=== PATIENT | female | born 1965 | race Caucasian/White ===

== ENCOUNTER → 2017-02-27 | Outpatient (CLI) | payer MEDICARE, MEDICAID ==
[2017-02-27 13:24] LABS: AEROMONAS NOT DETECTED (NOT DETECTE); ASTROVIRUS NOT DETECTED (NOT DETECTE); CYCLOSPORA CAYETANENSIS NOT DETECTED (NOT DETECTE); E COLI O157 NOT DETECTED (NOT DETECTE); ENTEROAGGREGATIVE E COLI NOT DETECTED (NOT DETECTE); ENTEROPATHOGENIC E COLI NOT DETECTED (NOT DETECTE); ENTEROTOXIGENIC E COLI NOT DETECTED (NOT DETECTE); NOROVIRUS NOT DETECTED (NOT DETECTE); SAPOVIRUS NOT DETECTED (NOT DETECTE); SHIGA-LIKE TOXIN PROD. E COLI NOT DETECTED (NOT DETECTE); SHIGELLA/ENTEROINVASIVE E COLI NOT DETECTED (NOT DETECTE); VIBRIO CHOLERAE NOT DETECTED (NOT DETECTE)
== END ==
LOC: CARL-LAB 08:16
PROVIDERS: Internal Medicine Gastroenterology
DX: R19.7 Diarrhea, unspecified (principal)

== ENCOUNTER 2017-08-17 15:04 | Emergency (ER) | payer MEDICARE, MEDICAID ==
[~2017-08-17] VITALS: Ht 162.6 cm; Wt 180.5 kg
--- OUTSIDE RECORDS SUMMARY | 2017-08-17 15:22 | External Medical Summary Rpt | CCD ---
Author Author , RIGOBERTO Organization RIGOBERTO Address Unknown Phone [email or web address] Purpose Continuity of Care Document - 07-07-2012 through 2016 Results Labs Lab Lab Date Result Refere Interp Status Commen Order Detail nces retati t Range on HBV surface Ag SerPl Ql EIA (05-17-2017 09:38) HBV NEG complet surface 017 NEGATIV ed Ag 09:38 E L SerPl Ql EIA Comment: Reference Value: Negative HCV Ab SerPl Ql EIA (05-17-2017 09:38) HCV Ab NEG complet SerPl 017 NEGATIV ed Ql EIA 09:38 E L Comment: Reference Range: Negative HBV surface Ab Ser Ql (05-17-2017 09:38) HBV 0.09 complet surface 017 ed Ab Ser 09:38 Ql Comment: NEGATIVE Antibodies to HBsAg are less than 8 International Units/L which Comment: indicate they are not detected or are below the protective level for immunity. Ferritin SerPl-mCnc (12-26-2016 11:28) Ferriti 31 13-150 complet n 017 ng/mL ed SerPl-m 11:28 Cnc Transferrin SerPl-mCnc (12-26-2016 11:28) Transfe 377 200-360 complet rrin 017 mg/dL ed SerPl-m 11:28 Cnc [id number] (07-22-2013 07:40) ALT 29 IU/L 12 - 78 complet (SGPT) 013 ed 07:40 ALK 74 IU/L 50 - complet PHOS 013 136 ed 07:40 TOTAL 6.8 6.40 - complet PROTEIN 013 g/dl 8.20 ed 07:40 ALBUMIN 3.0 3.40 - Below complet 013 g/dl 5.0 low ed 07:40 normal GLOBULI 3.8 1.30 - Above complet N 013 g/dl 3.50 high ed 07:40 normal A/G 0.8 1.0 - Below complet RATIO 013 ratio 3.90 low ed 07:40 normal GLOMERU complet 013 LAR ed 07:40 FILTRAT ION RATE INTERPR ETATION Normal complet 013 Range: ed 07:40 60 Ml/min/ 1.73 sq meters If complet 013 patient ed 07:40 is [place] n, multipl y GFR by 1.120. SODIUM 141 136 - complet 013 mmol/L 145 ed 07:40 POTASSI 3.8 3.50 - complet UM 013 mmol/L 5.10 ed 07:40 CHLORID 106 98 - complet E 013 mmol/L 107 ed 07:40 TOTAL 26 21 - 32 complet CO2 013 mmol/L ed 07:40 ANION 13 5 - 15 complet GAP 013 mmol/L ed 07:40 GLUCOSE 115 70 - complet 013 mg/dl 120 ed 07:40 BUN 6 mg/dl 7 - 18 Below complet 013 low ed 07:40 normal CREATIN 1.0 0.60 - complet INE 013 mg/dl 1.30 ed 07:40 AGE 10 47 yrs complet 013 ed 07:40 GFR 60 complet 013 ml/min ed 07:40 CALCIUM 8.6 8.50 - complet 013 mg/dl 10.10 ed 07:40 TOTAL 0.6 0.20 - complet GERTRUDE 013 mg/dl 1.0 ed 07:40 AST 20 IU/L 15 - 37 complet (SGOT) 013 ed 07:40 1009 *GFR complet 013 only ed 07:40 applies to adults over the age 18. 53393-3 (07-20-2013 22:15) Color LT. NL: complet 013 YELL Negativ ed 22:15 e Clarity CLEAR NL: complet 013 Negativ ed 22:15 e Glucose NEG NL: complet 013 Negativ ed 22:15 e Bilirub NEG NL: complet in 013 Negativ ed 22:15 e Ketones NEG NL: complet 013 Negativ ed 22:15 e Specifi 1.020 NL: complet c Gr 013 1.00 >= ed 22:15 1.030 Blood NEG NL: complet 013 Negativ ed 22:15 e pH 6.0 NL: complet 013 ed 22:15 Protein NEG NL: complet 013 Negativ ed 22:15 e Urobili 0.2 NL: 0.2 complet nogen 013 - 1.0 ed 22:15 Nitrite NEG NL: complet 013 Negativ ed 22:15 e Leukocy NEG NL: complet arielle 013 Negativ ed 22:15 e MICROSC See active OPIC 013 Below_ 22:15 Wbc NEGATIV NL: active 013 E NEGATIV 22:15 E Rbc NEGATIV NL: active 013 E NEGATIV 22:15 E Epi NEGATIV NL: active Cells 013 E NEGATIV 22:15 E Bacteri NEGATIV NL: active a 013 E NEGATIV 22:15 E Mucous NEGATIV NL: active 013 E NEGATIV 22:15 E Yeast NEGATIV NL: active 013 E NEGATIV 22:15 E Casts NEGATIV NL: active 013 E NEGATIV 22:15 E Crystal NEGATIV NL: active s 013 E NEGATIV 22:15 E METH OF C CATCH complet MARI 013 ed 22:15 CULTURE NOT complet SETUP 013 INDIC ed 22:15 [id number] (07-20-2013 15:55) NE% 55.6 % 37.0 - complet 013 80.0 ed 15:55 EO% 2.20 % 0.00 - complet 013 7.00 ed 15:55 BA% 0.40 % 0.00 - complet 013 2.50 ed 15:55 LY# 10-07-2 3.50 0.60 - Above complet 013 K/uL 3.40 high ed 15:55 normal MO# 07-20- 0.92 0.00 - Above complet 013 K/uL 0.90 high ed 15:55 normal NE# 07-20-2 5.89 2.00 - complet 013 K/uL 6.90 ed 15:55 EO# 07-20- 0.23 0.00 - complet 013 K/uL 0.70 ed 15:55 BA# 07-20- 0.04 0.00 - complet 013 K/uL 0.20 ed 15:55 Manual NOT complet Diff 013 INDICAT ed 15:55 ED WBC 10.6 4.60 - Above complet 013 K/uL 10.20 high ed 15:55 normal RBC 4.80 4.04 - complet 013 M/uL 6.13 ed 15:55 HGB 12.5 12.20 - complet 013 g/dL 18.10 ed 15:55 HCT 39 % 37.70 - complet 013 53.70 ed 15:55 MCV 80.6 fL 80.0 - complet 013 97.0 ed 15:55 MCH 26.0 pg 27.0 - Below complet 013 31.20 low ed 15:55 normal MCHC 32.3 31.80 - complet 013 g/dL 35.40 ed 15:55 RDW 14.3 % 11.60 - complet 013 14.80 ed 15:55 PLT 536 142 - Above complet 013 K/uL 424 high ed 15:55 normal LY% 33.1 % 10.0 - complet 013 50.0 ed 15:55 MO% 8.7 % 0.0 - complet 013 12.0 ed 15:55 [id number] (07-20-2013 15:55) HEMOGLO 5.8 % 4.50 - complet BIN A1C 013 6.20 ed 15:55 NON-DARBY complet 013 BETIC: ed 15:55 <6.0% TOTAL HGB 31876-2 (07-20-2013 15:55) CHOLEST 174 0 - 200 complet ALEJANDRINA 013 mg/dL ed 15:55 HDL 33 35 - 60 Below complet CHOL 013 mg/dl low ed 15:55 normal LDL 93 0 - 130 complet CHOL 013 mg/dl ed 15:55 CHOL/HD 5.27 0.00 - Above complet LC 013 ratio 4.44 high ed RATIO 15:55 normal TRIGLYC 241 1 - 150 Above complet ERIDES 013 mg/dL high ed 15:55 normal [id number] (07-16-2013 04:25) SODIUM 139 136 - complet 013 mmol/L 145 ed 04:25 POTASSI 2.8 3.50 - Below complet UM 013 mmol/L 5.10 lower ed 04:[address] BCK C.ROSEB complet VRFY: 013 ERRY ed 04:25 0458 07/16/13 CHLORID 98 98 - complet E 013 mmol/L 107 ed 04:25 TOTAL 30 21 - 32 complet CO2 013 mmol/L ed 04:25 ANION 14 5 - 15 complet GAP 013 mmol/L ed 04:25 GLUCOSE 125 70 - Above complet 013 mg/dl 120 high ed 04:25 normal BUN 14 7 - 18 complet 013 mg/dl ed 04:25 CREATIN 1.1 0.60 - complet INE 013 mg/dl 1.30 ed 04:25 AGE 10 47 yrs complet 013 ed 04:25 GFR 57 complet 013 ml/min ed 04:25 CALCIUM 9.0 8.50 - complet 013 mg/dl 10.10 ed 04:25 TOTAL 0.9 0.20 - complet GERTRUDE 013 mg/dl 1.0 ed 04:25 AST 20 IU/L 15 - 37 complet (SGOT) 013 ed 04:25 ALT 28 IU/L 12 - 78 complet (SGPT) 013 ed 04:25 ALK 98 IU/L 50 - complet PHOS 013 136 ed 04:25 TOTAL 8.4 6.40 - Above complet PROTEIN 013 g/dl 8.20 high ed 04:25 normal ALBUMIN 03-2 3.9 3.40 - complet 013 g/dl 5.0 ed 04:25 GLOBULI 1003-2 4.5 1.30 - Above complet N 013 g/dl 3.50 high ed 04:25 normal A/G 07-16-2 0.9 1.0 - Below complet RATIO 013 ratio 3.90 low ed 04:25 normal 07-16-2 \E\BLDo complet 013 \E\GLOM ed 04:25 ERULAR FILTRAT ION RATE INTERPR ETATION \E\BLDx \E\ Normal complet 013 Range: ed 04:25 >60 Ml/min/ 1.73 sq meters If complet 013 patient ed 04:25 is [place] n, multipl y GFR by 1.120. *GFR complet 013 only ed 04:25 applies to adults over the age 18. [id number] (07-16-2013 04:25) WBC -03-2 7.4 4.60 - complet 013 K/uL 10.20 ed 04:25 RBC 10-03-2 4.76 4.04 - complet 013 M/uL 6.13 ed 04:25 HGB 10-03-2 12.3 12.20 - complet 013 g/dL 18.10 ed 04:25 HCT -03-2 38 % 37.70 - complet 013 53.70 ed 04:25 MCV -03-2 80.5 fL 80.0 - complet 013 97.0 ed 04:25 MCH -03-2 25.8 pg 27.0 - Below complet 013 31.20 low ed 04:25 normal MCHC 10-03-2 32.1 31.80 - complet 013 g/dL 35.40 ed 04:25 RDW 10-03-2 14.1 % 11.60 - complet 013 14.80 ed 04:25 PLT 10-03-2 461 142 - Above complet 013 K/uL 424 high ed 04:25 normal LY% 10-03-2 26.2 % 10.0 - complet 013 50.0 ed 04:25 MO% 03-2 15.7 % 0.0 - Above complet 013 12.0 high ed 04:25 normal NE% 10-03-2 55.4 % 37.0 - complet 013 80.0 ed 04:25 EO% 10-03-2 2.00 % 0.00 - complet 013 7.00 ed 04:25 BA% 10-03-2 0.70 % 0.00 - complet 013 2.50 ed 04:25 LY# 10-03-2 1.93 0.60 - complet 013 K/uL 3.40 ed 04:25 MO# 10-03-2 1.16 0.00 - Above complet 013 K/uL 0.90 high ed 04:25 normal NE# 10-03-2 4.08 2.00 - complet 013 K/uL 6.90 ed 04:25 EO# 10-03-2 0.15 0.00 - complet 013 K/uL 0.70 ed 04:25 BA# 10-03-2 0.05 0.00 - complet 013 K/uL 0.20 ed 04:25 Manual 10--2 NOT complet Diff 013 INDICAT ed 04:25 [place] [id number] (07-15-2013 07:34) EO% 10-02-2 2.00 % 0.00 - complet 013 7.00 ed 07:34 BA% 10-02-2 1.00 % 0.00 - complet 013 2.50 ed 07:34 LY# 10-02-2 1.74 0.60 - complet 013 K/uL 3.40 ed 07:34 MO# 10-02-2 0.93 0.00 - Above complet 013 K/uL 0.90 high ed 07:34 normal NE# 10-02-2 3.19 2.00 - complet 013 K/uL 6.90 ed 07:34 EO# 10-02-2 0.12 0.00 - complet 013 K/uL 0.70 ed 07:34 BA# 10-02-2 0.06 0.00 - complet 013 K/uL 0.20 ed 07:34 Manual 10--2 NOT complet Diff 013 INDICAT ed 07:34 ED WBC 10-02-2 6.0 4.60 - complet 013 K/uL 10.20 ed 07:34 RBC 10-02-2 4.81 4.04 - complet 013 M/uL 6.13 ed 07:34 HGB 10-02-2 12.6 12.20 - complet 013 g/dL 18.10 ed 07:34 HCT 39 % 37.70 - complet 013 53.70 ed 07:34 MCV 80.9 fL 80.0 - complet 013 97.0 ed 07:34 MCH 26.2 pg 27.0 - Below complet 013 31.20 low ed 07:34 normal MCHC 32.4 31.80 - complet 013 g/dL 35.40 ed 07:34 RDW 2 14.1 % 11.60 - complet 013 14.80 ed 07:34 PLT 02- 490 142 - Above complet 013 K/uL 424 high ed 07:34 normal LY% 28.8 % 10.0 - complet 013 50.0 ed 07:34 MO% 15.4 % 0.0 - Above complet 013 12.0 high ed 07:34 normal NE% 52.8 % 37.0 - complet 013 80.0 ed 07:34 [id number] (07-15-2013 07:34) ALT 31 IU/L 12 - 78 complet (SGPT) 013 ed 07:34 SODIUM 137 136 - complet 013 mmol/L 145 ed 07:34 POTASSI 3.0 3.50 - Below complet UM 013 mmol/L 5.10 low ed 07:34 normal CHLORID 97 98 - Below complet E 013 mmol/L 107 low ed 07:34 normal TOTAL 28 21 - 32 complet CO2 013 mmol/L ed 07:34 ANION 15 5 - 15 complet GAP 013 mmol/L ed 07:34 GLUCOSE 07-15- 109 70 - complet 013 mg/dl 120 ed 07:34 BUN 07-15-2 15 7 - 18 complet 013 mg/dl ed 07:34 CREATIN 02-2 1.1 0.60 - complet INE 013 mg/dl 1.30 ed 07:34 AGE [birth year]-2 47 yrs complet 013 ed 07:34 GFR 07-15- 57 complet 013 ml/min ed 07:34 CALCIUM 07-15-2 9.1 8.50 - complet 013 mg/dl 10.10 ed 07:34 TOTAL 07-15-2 1.2 0.20 - Above complet GERTRUDE 013 mg/dl 1.0 high ed 07:34 normal AST 23 IU/L 15 - 37 complet (SGOT) 013 ed 07:34 ALK 103 50 - complet PHOS 013 IU/L 136 ed 07:34 10-02 *GFR complet 013 only ed 07:34 applies to adults over the age 18. TOTAL 8.7 6.40 - Above complet PROTEIN 013 g/dl 8.20 high ed 07:34 normal ALBUMIN 4.0 3.40 - complet 013 g/dl 5.0 ed 07:34 GLOBULI 4.7 1.30 - Above complet N 013 g/dl 3.50 high ed 07:34 normal A/G 0.9 1.0 - Below complet RATIO 013 ratio 3.90 low ed 07:34 normal \E\BLDo complet 013 \E\GLOM ed 07:34 ERULAR FILTRAT ION RATE INTERPR ETATION \E\BLDx \E\ Normal complet 013 Range: ed 07:34 >60 Ml/min/ 1.73 sq meters If complet 013 patient ed 07:34 is [place] n, multipl y GFR by 1.120. [id number] (07-14-2013 08:10) AMYLASE 35 IU/L 25 - complet 013 115 ed 08:10 3040-3 (07-14-2013 08:10) LIPASE 150 U/L 73 - complet 013 393 ed 08:10 [id number] (07-13-2013 18:50) MO# 07-13- 0.95 0.00 - Above complet 013 K/uL 0.90 high ed 18:50 normal NE# 07-13- 6.30 2.00 - complet 013 K/uL 6.90 ed 18:50 WBC 9.4 4.60 - complet 013 K/uL 10.20 ed 18:50 RBC 5.25 4.04 - complet 013 M/uL 6.13 ed 18:50 HGB 13.8 12.20 - complet 013 g/dL 18.10 ed 18:50 HCT --2 42 % 37.70 - complet 013 53.70 ed 18:50 MCV 07-13-2 80.6 fL 80.0 - complet 013 97.0 ed 18:50 MCHC 30-2 32.6 31.80 - complet 013 g/dL 35.40 ed 18:50 RDW 07-13-2 13.9 % 11.60 - complet 013 14.80 ed 18:50 NE% 07-13-2 66.9 % 37.0 - complet 013 80.0 ed 18:50 EO% 07-13-2 1.10 % 0.00 - complet 013 7.00 ed 18:50 BA% 07-13-2 0.50 % 0.00 - complet 013 2.50 ed 18:50 LY# 07-13-2 2.01 0.60 - complet 013 K/uL 3.40 ed 18:50 MO% 07-13-2 10.1 % 0.0 - complet 013 12.0 ed 18:50 MCH 07-13-2 26.3 pg 27.0 - Below complet 013 31.20 low ed 18:50 normal EO# 07-13-2 0.10 0.00 - complet 013 K/uL 0.70 ed 18:50 BA# -30-2 0.05 0.00 - complet 013 K/uL 0.20 ed 18:50 Manual 07-13-2 NOT complet Diff 013 INDICAT ed 18:50 ED PLT 07-13-2 491 142 - Above complet 013 K/uL 424 high ed 18:50 normal LY% 07-13-2 21.4 % 10.0 - complet 013 50.0 ed 18:50 [id number] (07-13-2013 18:50) ALT 07-13-2 35 IU/L 12 - 78 complet (SGPT) 013 ed 18:50 ALK 07-13-2 105 50 - complet PHOS 013 IU/L 136 ed 18:50 TOTAL 07-13-2 9.5 6.40 - Above complet PROTEIN 013 g/dl 8.20 high ed 18:50 normal ALBUMIN 07-13-2 4.2 3.40 - complet 013 g/dl 5.0 ed 18:50 GLOBULI 07-13-2 5.3 1.30 - Above complet N 013 g/dl 3.50 high ed 18:50 normal A/G 0.8 1.0 - Below complet RATIO 013 ratio 3.90 low ed 18:50 normal 07-13-2 \E\BLDo complet 013 \E\GLOM ed 18:50 ERULAR FILTRAT ION RATE INTERPR ETATION \E\BLDx \E\ Normal complet 013 Range: ed 18:50 >60 Ml/min/ 1.73 sq meters If complet 013 patient ed 18:50 is [place] n, multipl y GFR by 1.120. *GFR complet 013 only ed 18:50 applies to adults over the age 18. SODIUM 136 136 - complet 013 mmol/L 145 ed 18:50 POTASSI 3.0 3.50 - Below complet UM 013 mmol/L 5.10 low ed 18:50 normal CHLORID 97 98 - Below complet E 013 mmol/L 107 low ed 18:50 normal TOTAL 27 21 - 32 complet CO2 013 mmol/L ed 18:50 ANION 15 5 - 15 complet GAP 013 mmol/L ed 18:50 GLUCOSE 94 70 - complet 013 mg/dl 120 ed 18:50 BUN 19 7 - 18 Above complet 013 mg/dl high ed 18:50 normal CREATIN 1.2 0.60 - complet INE 013 mg/dl 1.30 ed 18:50 AGE 09 47 yrs complet 013 ed 18:50 GFR 51 complet 013 ml/min ed 18:50 CALCIUM 9.6 8.50 - complet 013 mg/dl 10.10 ed 18:50 TOTAL 1.2 0.20 - Above complet GERTRUDE 013 mg/dl 1.0 high ed 18:50 normal AST 31 IU/L 15 - 37 complet (SGOT) 013 ed 18:50 3040-3 (07-13-2013 18:50) LIPASE 114 U/L 73 - complet 013 393 ed 18:50 1798-8 (07-13-2013 18:50) AMYLASE 33 IU/L 25 - complet 013 115 ed 18:50 2132-9 (07-12-2013 10:07) complet 013 3.1455. ed 10:07 XMT.SEN T REF complet 013 3.1455. ed 10:07 EHB.to LISA BROWN via link [place] complet 013 R. ed 10:07 Hazel oakley MD TEST complet 013 RESULT ed 10:07 FLAG RANGE UNITS VA ------- complet 013 ------- ed 10:07 ------- ------- ------- ------- ------- ------- ------- ------- ------- --- _VIT complet 013 B12\T\ ed 10:07 FOLATE_ Vitamin complet 013 B12 ed 10:07 and Folate CB complet 013 refers ed 10:07 to: [facility] A serum complet 013 folate ed 10:07 concent ration of less than 3.1 ng/mL is conside complet 013 red to ed 10:07 represe nt clinica l deficie ncy. Reporte complet 013 d: ed 10:07 013 13:12 Status= F Vitamin complet 013 B12 ed 10:07 546 211-946 pg/mL CB 3.1314. rfl.COR RCTD .[facility] Folate complet 013 (Folic ed 10:07 Acid), 12.2 >3.0 ng/mL CB 3.1314. rfl.COR RCTD .TR Serum complet 013 ed 10:07 6370 complet 013 Espino ed 10:07 Road [place], complet 013 OH ed 10:07 [id number] 296 614 complet 013 889-106 ed 10:07 1 37416-9 (07-12-2013 10:07) RETIC 09-29-2 1.1 % 0.20 - complet CT. 013 2.0 ed 10:07 2276-4 (07-12-2013 10:07) FERRITI 13 8 - 388 complet N 013 ng/mL ed 10:07 2502-3 (07-12-2013 10:07) IBCT 527 250 - Above complet 013 ug/dL 450 high ed 10:07 normal IRON 80 50 - complet 013 ug/dL 175 ed 10:07 % 15 12 - 57 complet SATURAT 013 ed ION 10:07 15540-1 (07-12-2013 10:07) BA# 0.04 0.00 - complet 013 K/uL 0.20 ed 10:07 Manual NOT complet Diff 013 INDICAT ed 10:07 ED WBC 7.3 4.60 - complet 013 K/uL 10.20 ed 10:07 RBC 4.88 4.04 - complet 013 M/uL 6.13 ed 10:07 HGB 12.9 12.20 - complet 013 g/dL 18.10 ed 10:07 HCT 40 % 37.70 - complet 013 53.70 ed 10:07 MCV 81.4 fL 80.0 - complet 013 97.0 ed 10:07 MCH 26.4 pg 27.0 - Below complet 013 31.20 low ed 10:07 normal MCHC 32.5 31.80 - complet 013 g/dL 35.40 ed 10:07 RDW 13.9 % 11.60 - complet 013 14.80 ed 10:07 PLT 459 142 - Above complet 013 K/uL 424 high ed 10:07 normal LY% 30.6 % 10.0 - complet 013 50.0 ed 10:07 MO% 9.3 % 0.0 - complet 013 12.0 ed 10:07 NE% 57.8 % 37.0 - complet 013 80.0 ed 10:07 EO% 1.80 % 0.00 - complet 013 7.00 ed 10:07 BA% 07-12-2 0.50 % 0.00 - complet 013 2.50 ed 10:07 LY# --2 2.24 0.60 - complet 013 K/uL 3.40 ed 10:07 MO# -29-2 0.68 0.00 - complet 013 K/uL 0.90 ed 10:07 NE# -29-2 4.22 2.00 - complet 013 K/uL 6.90 ed 10:07 EO# --2 0.13 0.00 - complet 013 K/uL 0.70 ed 10:07 [id number] (07-11-2013 08:00) TROPONI 07-11-2 0.00 0.00 - complet N-I 013 ng/ml 0.06 ed 08:00 INITIAL complet 013 ed 08:00 TROPONI N? __NO_ 3.0854. CW . . .M 0 - complet 013 0.06 ed 08:00 ng/ml (NEGATI VE) > 0.06 complet 013 ng/ml ed 08:00 (POSITI VE) CKMB wCPK (07-11-2013 08:00) CKMB 0.1 0.01 - complet 013 ng/ml 3.60 ed 08:00 CK 58 U/L 21 - complet 013 215 ed 08:00 CKMB NOT 0 - complet INDEX 013 APPL % 4.10 ed 08:00 MMB complet 013 (ng/ml) ed 08:00 Relativ e Index NON AMI complet 013 </= ed 08:00 5.0 NA CARDENAS complet 013 ZONE > ed 08:00 5.0 </= 4.0 AMI > complet 013 5.0 > ed 08:00 4.0 RELATIV complet 013 E INDEX ed 08:00 NOT AVAILAB LE ON PATIENT S W/HARVEY L CKMB [id number] (07-11-2013 04:15) MCV 81.9 fL 80.0 - complet 013 97.0 ed 04:15 MCH 09-28-2 26.3 pg 27.0 - Below complet 013 31.20 low ed 04:15 normal MCHC 07-11-2 32.1 31.80 - complet 013 g/dL 35.40 ed 04:15 RDW 07-11-2 14.0 % 11.60 - complet 013 14.80 ed 04:15 PLT 07-11-2 460 142 - Above complet 013 K/uL 424 high ed 04:15 normal LY% 07-11-2 37.8 % 10.0 - complet 013 50.0 ed 04:15 MO% 07-11-2 8.7 % 0.0 - complet 013 12.0 ed 04:15 NE% 07-11-2 50.5 % 37.0 - complet 013 80.0 ed 04:15 EO% 07-11-2 2.50 % 0.00 - complet 013 7.00 ed 04:15 BA% 07-11-2 0.50 % 0.00 - complet 013 2.50 ed 04:15 LY# 07-11-2 3.33 0.60 - complet 013 K/uL 3.40 ed 04:15 MO# 07-11-2 0.77 0.00 - complet 013 K/uL 0.90 ed 04:15 NE# 28-2 4.45 2.00 - complet 013 K/uL 6.90 ed 04:15 EO# 28-2 0.22 0.00 - complet 013 K/uL 0.70 ed 04:15 BA# 09-28-2 0.04 0.00 - complet 013 K/uL 0.20 ed 04:15 Manual 2 NOT complet Diff 013 INDICAT ed 04:15 ED WBC 07-11-2 8.8 4.60 - complet 013 K/uL 10.20 ed 04:15 RBC 07-11-2 4.26 4.04 - complet 013 M/uL 6.13 ed 04:15 HGB 07-11-2 11.2 12.20 - Below complet 013 g/dL 18.10 low ed 04:15 normal HCT 07-11- 35 % 37.70 - Below complet 013 53.70 low ed 04:15 normal 5902-2 (07-11-2013 04:15) PT 07-11-2 11.2 9.70 - Above complet 013 secs 10.60 high ed 04:15 normal INR 1.1 0.90 - complet 013 1.10 ed 04:15 INR complet 013 SUGGEST ed 04:15 ED GUIDELI CHENCHO * complet 013 Routine ed 04:15 or anticoa gulant therapy 2.0 - 3.0 * Oral complet 013 anticoa ed 04:15 gulant therapy for recurre nt embolis complet 013 m and ed 04:15 patient s with mechani shanna heart valves complet 013 2.5 - ed 04:15 3.5 43369-4 (07-11-2013 01:30) TROPONI 0.00 0.00 - complet N-I 013 ng/ml 0.06 ed 01:30 INITIAL complet 013 ed 01:30 TROPONI N? __NO_ 3.0254. C. . .M RD BCK o.Trues complet VRFY: 013 /09 ed 01:30 2813/02 15/king 0 - complet 013 0.06 ed 01:30 ng/ml (NEGATI VE) > 0.06 complet 013 ng/ml ed 01:30 (POSITI VE) CKMB wCPK (07-11-2013 01:30) CKMB 0.3 0.01 - complet 013 ng/ml 3.60 ed 01:30 CK 57 U/L 21 - complet 013 215 ed 01:30 CKMB NOT 0 - complet INDEX 013 APPL % 4.10 ed 01:30 MMB complet 013 (ng/ml) ed 01:30 Relativ e Index NON AMI complet 013 </= ed 01:30 5.0 NA CARDENAS complet 013 ZONE > ed 01:30 5.0 </= 4.0 AMI > complet 013 5.0 > ed 01:30 4.0 RELATIV complet 013 E INDEX ed 01:30 NOT AVAILAB LE ON PATIENT S W/HARVEY L CKMB [id number] (07-11-2013 00:50) APTT 09-28-2 76.5 26.90 - Above complet 013 secs 29.96 upper ed 00:[address] [facility] O.Trues complet VRFY: 013 dell/ ed 00:50 2813/01 33/king 84134-9 (07-10-2013 20:25) TROPONI 0.00 0.00 - complet N-I 013 ng/ml 0.06 ed 20:25 INITIAL complet 013 ed 20:25 TROPONI N? __NO_ 3.1. VWC. . .M RD [facility] O.Trues complet VRFY: 013 dell/ ed 20:25 2713/21 21/king 0 - complet 013 0.06 ed 20:25 ng/ml (NEGATI VE) > 0.06 complet 013 ng/ml ed 20:25 (POSITI VE) CKMB wCPK (07-10-2013 20:25) CKMB 0.3 0.01 - complet 013 ng/ml 3.60 ed 20:25 CK 63 U/L 21 - complet 013 215 ed 20:25 CKMB NOT 0 - complet INDEX 013 APPL % 4.10 ed 20:25 MMB complet 013 (ng/ml) ed 20:25 Relativ e Index NON AMI complet 013 </= ed 20:25 5.0 NA CARDENAS complet 013 ZONE > ed 20:25 5.0 </= 4.0 AMI > complet 013 5.0 > ed 20:25 4.0 RELATIV complet 013 E INDEX ed 20:25 NOT AVAILAB LE ON PATIENT S W/HARVEY L CKMB 20824-0 (07-10-2013 17:30) CULTURE C\T\S Abnorma complet SETUP 013 ORDER l ed 17:30 Urobili 0.2 NL: 0.2 complet nogen 013 - 1.0 ed 17:30 Color LT. NL: complet 013 YELL Negativ ed 17:30 e Clarity CLEAR NL: complet 013 Negativ ed 17:30 e Glucose NEG NL: complet 013 Negativ ed 17:30 e Bilirub NEG NL: complet in 013 Negativ ed 17:30 e Ketones NEG NL: complet 013 Negativ ed 17:30 e Specifi 1.020 NL: complet c Gr 013 1.00 >= ed 17:30 1.030 Blood 2+ NL: Abnorma complet 013 Negativ l ed 17:30 e pH 6.0 NL: complet 013 ed 17:30 Wbc 3 - 5 NL: Abnorma complet 013 NEGATIV l ed 17:30 E Rbc 75 - NL: Abnorma complet 013 100 NEGATIV l ed 17:30 E Epi RARE NL: complet Cells 013 NEGATIV ed 17:30 E Bacteri 3+ NL: Abnorma complet a 013 NEGATIV l ed 17:30 E Mucous TRACE NL: complet 013 NEGATIV ed 17:30 E Yeast NEGATIV NL: active 013 E NEGATIV 17:30 E Casts SEE NL: complet 013 BELOW NEGATIV ed 17:30 E Hyaline 5 - 10 complet Cast 013 ed 17:30 Crystal SEE NL: complet s 013 BELOW NEGATIV ed 17:30 E METH OF C CATCH complet MARI 013 ed 17:30 Nitrite NEG NL: complet 013 Negativ ed 17:30 e Leukocy NEG NL: complet arielle 013 Negativ ed 17:30 e MICROSC See active OPIC 013 Below_ 17:30 Protein NEG NL: complet 013 Negativ ed 17:30 e [id number] (07-10-2013 12:30) therapy complet 013 , ed 12:30 stress, and hospita lizatio n. D-Dimer levels may be decreas ed in patient complet 013 s on ed 12:30 anti-co agulant therapy . Patient complet 013 s with ed 12:30 a high clinica l probabi lity should not be exclude d without confirm complet 013 atory ed 12:30 radiolo gical or vascula r procedu res. D-DIMER 0.32 0.19 - complet , QT 013 mg/L 0.59 ed 12:30 QUANTIT complet 013 ATIVE ed 12:30 D-DIMER INTERPR ETATION [CLINIC complet 013 AL ed 12:30 CUTOFF = <0.5 mg/L] When complet 013 combine ed 12:30 d with a low clinica l probabi lity (Wells Score). D-dimer results complet below ed 12:30 the clinica l cutoff (<0.5 mg/L) have excelle nt negativ e predict complet 013 elvia ed 12:30 value in excludi ng the diagnos is of acute PE or DVT. However , a complet 013 thrombo ed 12:30 embolic event cannot be exclude d solely on the basis of the D-Dimer 013 level ed 12:30 being within referen ce range. D-Dimer complet 013 s may ed 12:30 also be elevate d for a variety of disorde rs includi n old complet 013 age, ed 12:30 pregnan cy, coronar y disease , cancer, liver disease , infecti on, inflama complet 013 tion, ed 12:30 hematom a, DIC, trauma, post-hensley rgery, diabete s, thrombo lytic 5902-2 (07-10-2013 12:30) embolis complet 013 m and ed 12:30 patient s with mechani shanna heart valves complet 013 2.5 - ed 12:30 3.5 PT 11.5 9.70 - Above complet 013 secs 10.60 high ed 12:30 normal INR 1.1 0.90 - complet 013 1.10 ed 12:30 APTT 31.6 26.90 - Above complet 013 secs 29.96 high ed 12:30 normal INR complet 013 SUGGEST ed 12:30 ED GUIDELI CHENCHO * complet 013 Routine ed 12:30 or anticoa gulant therapy 2.0 - 3.0 * Oral complet 013 anticoa ed 12:30 gul[place] [id number] (07-10-2013 12:30) WBC 07-10- 10.6 4.60 - Above complet 013 K/uL 10.20 high ed 12:30 normal RBC 4.83 4.04 - complet 013 M/uL 6.13 ed 12:30 HGB 12.7 12.20 - complet 013 g/dL 18.10 ed 12:30 HCT 39 % 37.70 - complet 013 53.70 ed 12:30 MCV 81.0 fL 80.0 - complet 013 97.0 ed 12:30 MCH 26.3 pg 27.0 - Below complet 013 31.20 low ed 12:30 normal MCHC 32.5 31.80 - complet 013 g/dL 35.40 ed 12:30 RDW 2 14.1 % 11.60 - complet 013 14.80 ed 12:30 PLT 611 142 - Above complet 013 K/uL 424 high ed 12:30 normal LY% 07-10-2 32.5 % 10.0 - complet 013 50.0 ed 12:30 MO% 07-10-2 9.2 % 0.0 - complet 013 12.0 ed 12:30 NE% 07-10-2 54.6 % 37.0 - complet 013 80.0 ed 12:30 EO% 07-10-2 3.20 % 0.00 - complet 013 7.00 ed 12:30 BA% 07-10-2 0.50 % 0.00 - complet 013 2.50 ed 12:30 LY# 07-10-2 3.43 0.60 - Above complet 013 K/uL 3.40 high ed 12:30 normal MO# 07-10-2 0.97 0.00 - Above complet 013 K/uL 0.90 high ed 12:30 normal NE# 07-10-2 5.78 2.00 - complet 013 K/uL 6.90 ed 12:30 EO# 0.34 0.00 - complet 013 K/uL 0.70 ed 12:30 BA# 0.05 0.00 - complet 013 K/uL 0.20 ed 12:30 Manual NOT complet Diff 013 INDICAT ed 12:30 [place] [id number] (07-10-2013 12:30) TSH 0.51 0.36 - complet 013 uIU/mL 3.74 ed 12:30 [id number] (07-10-2013 12:30) TROPONI 0.00 0.00 - complet N-I 013 ng/ml 0.06 ed 12:30 INITIAL complet 013 ed 12:30 TROPONI N? _YES_ 3.1414. CW . . .M 0 - complet 013 0.06 ed 12:30 ng/ml (NEGATI VE) > 0.06 complet 013 ng/ml ed 12:30 (POSITI VE) [id number] (07-10-2013 12:30) MYOGLOB 35 10 - 92 complet IN 013 ng/ml ed 12:30 [id number] (07-10-2013 12:30) ALT 28 IU/L 12 - 78 complet (SGPT) 013 ed 12:30 ALK 98 IU/L 50 - complet PHOS 013 136 ed 12:30 TOTAL 9.0 6.40 - Above complet PROTEIN 013 g/dl 8.20 high ed 12:30 normal ALBUMIN 4.2 3.40 - complet 013 g/dl 5.0 ed 12:30 GLOBULI 4.8 1.30 - Above complet N 013 g/dl 3.50 high ed 12:30 normal A/G 0.9 1.0 - Below complet RATIO 013 ratio 3.90 low ed 12:30 normal \E\BLDo complet 013 \E\GLOM ed 12:30 ERULAR FILTRAT ION RATE INTERPR ETATION \E\BLDx \E\ Normal complet 013 Range: ed 12:30 >60 Ml/min/ 1.73 sq meters If complet 013 patient ed 12:30 is [place] n, multipl y GFR by 1.120. *GFR complet 013 only ed 12:30 applies to adults over the age 18. SODIUM 141 136 - complet 013 mmol/L 145 ed 12:30 POTASSI 3.8 3.50 - complet UM 013 mmol/L 5.10 ed 12:30 CHLORID 103 98 - complet E 013 mmol/L 107 ed 12:30 TOTAL 24 21 - 32 complet CO2 013 mmol/L ed 12:30 ANION 18 5 - 15 Above complet GAP 013 mmol/L high ed 12:30 normal GLUCOSE 106 70 - complet 013 mg/dl 120 ed 12:30 BUN 16 7 - 18 complet 013 mg/dl ed 12:30 CREATIN 1.2 0.60 - complet INE 013 mg/dl 1.30 ed 12:30 AGE 09 47 yrs complet 013 ed 12:30 GFR 51 complet 013 ml/min ed 12:30 CALCIUM 9.5 8.50 - complet 013 mg/dl 10.10 ed 12:30 TOTAL 0.9 0.20 - complet GERTRUDE 013 mg/dl 1.0 ed 12:30 AST 23 IU/L 15 - 37 complet (SGOT) 013 ed 12:30 CKMB wCPK (07-10-2013 12:30) CK 66 U/L 21 - complet 013 215 ed 12:30 CKMB NOT 0 - complet INDEX 013 APPL % 4.10 ed 12:30 MMB complet 013 (ng/ml) ed 12:30 Relativ e Index NON AMI complet 013 </= ed 12:30 5.0 NA CARDENAS complet 013 ZONE > ed 12:30 5.0 </= 4.0 AMI > complet 013 5.0 > ed 12:30 4.0 RELATIV complet 013 E INDEX ed 12:30 NOT AVAILAB LE ON PATIENT S W/HARVEY L CKMB CKMB 0.3 0.01 - complet 013 ng/ml 3.60 ed 12:30 [id number] (07-10-2013 12:30) TRIGLYC 171 1 - 150 Above complet ERIDES 013 mg/dL high ed 12:30 normal CHOLEST 198 0 - 200 complet ALEJANDRINA 013 mg/dL ed 12:30 HDL 41 35 - 60 complet CHOL 013 mg/dl ed 12:30 LDL 123 0 - 130 complet CHOL 013 mg/dl ed 12:30 CHOL/HD 4.83 0.00 - Above complet LC 013 ratio 4.44 high ed RATIO 12:30 normal [id number] (06-15-2013 04:50) causes complet 013 of ed 04:50 increas ed NT-proB CREDIT ASSISTANT not related to congest elvia heart failure complet 013 also. ed 04:50 For use as a screeni ng test, values less than 131pg/m l are complet 013 recomme ed 04:50 nded below the age of 75. For patient s 75 years and older, complet 013 a ed 04:50 cutoff of 450pg/n l is recomme nded. * NT-proB 296 0 - 131 Above complet CREDIT ASSISTANT 013 pg/ml high ed 04:50 normal NOTIFY YES complet QA 013 ed 04:50 This complet 013 ed 04:50 analyte has conside rable variabi lity in patient s without known heart complet 013 disease ed 04:50 and for this reason it is difficu lt to assign strict referen complet 013 ce ed 04:50 ranges that would account for all circums tances. NT-proB complet 013 CREDIT ASSISTANT can ed 04:50 show substan tial increas es in patient s without heart failure complet 013 with ed 04:50 increas ing age and advanci ng renal insuffi ciency; males in complet 013 general ed 04:50 have somewha t higher values than females . There are other [id number] (06-14-2013 04:30) WBC 7.8 4.60 - complet 013 K/uL 10.20 ed 04:30 RBC 4.03 4.04 - Below complet 013 M/uL 6.13 low ed 04:30 normal HGB 10.6 12.20 - Below complet 013 g/dL 18.10 low ed 04:30 normal HCT 34 % 37.70 - Below complet 013 53.70 low ed 04:30 normal MCV 84.6 fL 80.0 - complet 013 97.0 ed 04:30 MCH 26.3 pg 27.0 - Below complet 013 31.20 low ed 04:30 normal MCHC 31.1 31.80 - Below complet 013 g/dL 35.40 low ed 04:30 normal RDW 14.6 % 11.60 - complet 013 14.80 ed 04:30 PLT 375 142 - complet 013 K/uL 424 ed 04:30 LY% 2 42.5 % 10.0 - complet 013 50.0 ed 04:30 MO% 2 8.1 % 0.0 - complet 013 12.0 ed 04:30 NE% 06-14-2 43.6 % 37.0 - complet 013 80.0 ed 04:30 EO% 5.00 % 0.00 - complet 013 7.00 ed 04:30 BA% 2 0.80 % 0.00 - complet 013 2.50 ed 04:30 LY# 06-14-2 3.30 0.60 - complet 013 K/uL 3.40 ed 04:30 MO# --2 0.63 0.00 - complet 013 K/uL 0.90 ed 04:30 NE# 06-14-2 3.39 2.00 - complet 013 K/uL 6.90 ed 04:30 EO# 06-14-2 0.39 0.00 - complet 013 K/uL 0.70 ed 04:30 BA# 06-14-2 0.06 0.00 - complet 013 K/uL 0.20 ed 04:30 Manual NOT complet Diff 013 INDICAT ed 04:30 [place] [id number] (06-14-2013 04:30) SODIUM 140 136 - complet 013 mmol/L 145 ed 04:30 POTASSI 3.3 3.50 - Below complet UM 013 mmol/L 5.10 low ed 04:30 normal CHLORID 102 98 - complet E 013 mmol/L 107 ed 04:30 TOTAL 27 21 - 32 complet CO2 013 mmol/L ed 04:30 ANION 14 5 - 15 complet GAP 013 mmol/L ed 04:30 GLUCOSE 131 70 - Above complet 013 mg/dl 120 high ed 04:30 normal BUN 24 7 - 18 Above complet 013 mg/dl high ed 04:30 normal CREATIN 1.0 0.60 - complet INE 013 mg/dl 1.30 ed 04:30 AGE 09 47 yrs complet 013 ed 04:30 GFR 60 complet 013 ml/min ed 04:30 CALCIUM 8.6 8.50 - complet 013 mg/dl 10.10 ed 04:30 BUN/CRE 24 6 - 25 complet RATIO 013 ratio ed 04:30 OSMOLAL 285 272 - complet ITY 013 295 ed 04:30 GLOMERU complet 013 LAR ed 04:30 FILTRAT ION RATE INTERPR ETATION Normal complet 013 Range: ed 04:30 60 Ml/min/ 1.73 sq meters If complet 013 patient ed 04:30 is [place] n, multipl y GFR by 1.120. *GFR complet 013 only ed 04:30 applies to adults over the age 18. 91252-7 (06-13-2013 06:48) RBC 3.91 4.04 - Below complet 013 M/uL 6.13 low ed 06:48 normal WBC 9.5 4.60 - complet 013 K/uL 10.20 ed 06:48 HGB 10.9 12.20 - Below complet 013 g/dL 18.10 low ed 06:48 normal HCT 32 % 37.70 - Below complet 013 53.70 low ed 06:48 normal MCV 82.1 fL 80.0 - complet 013 97.0 ed 06:48 MCH 27.9 pg 27.0 - complet 013 31.20 ed 06:48 MCHC 34.0 31.80 - complet 013 g/dL 35.40 ed 06:48 RDW 2 14.8 % 11.60 - complet 013 14.80 ed 06:48 PLT 564 142 - Above complet 013 K/uL 424 high ed 06:48 normal LY% 35.5 % 10.0 - complet 013 50.0 ed 06:48 MO% 06-13-2 7.5 % 0.0 - complet 013 12.0 ed 06:48 NE% 06-13-2 51.0 % 37.0 - complet 013 80.0 ed 06:48 EO% 06-13-2 5.50 % 0.00 - complet 013 7.00 ed 06:48 BA% 06-13-2 0.50 % 0.00 - complet 013 2.50 ed 06:48 LY# 06-13-2 3.38 0.60 - complet 013 K/uL 3.40 ed 06:48 MO# 08-31-2 0.71 0.00 - complet 013 K/uL 0.90 ed 06:48 NE# 08-31-2 4.87 2.00 - complet 013 K/uL 6.90 ed 06:48 EO# 08-31-2 0.52 0.00 - complet 013 K/uL 0.70 ed 06:48 BA# 08-31-2 0.05 0.00 - complet 013 K/uL 0.20 ed 06:48 Manual 06-13-2 SLIDE complet Diff 013 SCAN-OK ed 06:48 [id number] (06-12-2013 11:45) NE# 08-30-2 6.06 2.00 - complet 013 K/uL 6.90 ed 11:45 EO# 08-30-2 0.47 0.00 - complet 013 K/uL 0.70 ed 11:45 BA# 08-30-2 0.04 0.00 - complet 013 K/uL 0.20 ed 11:45 Manual 2 NOT complet Diff 013 INDICAT ed 11:45 ED MO# 08-30-2 0.88 0.00 - complet 013 K/uL 0.90 ed 11:45 LY# 0830-2 2.37 0.60 - complet 013 K/uL 3.40 ed 11:45 BA% 06-12-2 0.40 % 0.00 - complet 013 2.50 ed 11:45 EO% 06-12-2 4.80 % 0.00 - complet 013 7.00 ed 11:45 NE% 06-12-2 61.7 % 37.0 - complet 013 80.0 ed 11:45 MO% 06-12-2 9.0 % 0.0 - complet 013 12.0 ed 11:45 LY% 06-12-2 24.1 % 10.0 - complet 013 50.0 ed 11:45 PLT 06-12- 460 142 - Above complet 013 K/uL 424 high ed 11:45 normal RDW 14.5 % 11.60 - complet 013 14.80 ed 11:45 MCHC 06-12- 32.9 31.80 - complet 013 g/dL 35.40 ed 11:45 MCH 06-12- 26.8 pg 27.0 - Below complet 013 31.20 low ed 11:45 normal MCV 81.5 fL 80.0 - complet 013 97.0 ed 11:45 HCT 06-12- 35 % 37.70 - Below complet 013 53.70 low ed 11:45 normal HGB 11.4 12.20 - Below complet 013 g/dL 18.10 low ed 11:45 normal RBC 06-12-2 4.26 4.04 - complet 013 M/uL 6.13 ed 11:45 WBC 06-12- 9.8 4.60 - complet 013 K/uL 10.20 ed 11:45 3053-6 (06-12-2013 11:45) _T3 complet 013 TOTAL_ ed 11:45 Triiodo complet 013 thyroni ed 11:45 ne (T3) Reporte complet 013 d: ed 11:45 013 08:13 Status= F ------- complet 013 ------- ed 11:45 ------- ------- ------- ------- ------- ------- ------- ------- ------- --- TEST complet 013 RESULT ed 11:45 FLAG RANGE UNITS SC Triiodo complet 013 thyroni ed 11:45 ne (T3) 127 71-180 ng/dL CB 3.0815. [email or web address] PLETE.L CTR CB complet refers ed 11:45 to: [facility] [place] 6370 complet 013 Esp[place] ed 11:45 [address] [place], complet 013 [place] ed 11:45 [id number] 296 614 complet 013 889-106 ed 11:45 1 [place] complet 013 R. ed 11:45 Hazel oakley MD complet 013 3.0552. ed 11:45 MDA.to LISA GLE via link D DIMER QT (06-12-2013 11:45) DD] complet D-DIMER ed 11:45 , QT complet 013 ed 11:45 COR RECTED REPORT* D-DIMER 0.19 0.19 - complet , QT 013 mg/L 0.59 ed 11:45 QUANTIT complet 013 ATIVE ed 11:45 D-DIMER INTERPR ETATION [CLINIC complet 013 AL ed 11:45 CUTOFF = 0.5 mg/L] When complet 013 combine ed 11:45 d with a low clinica l probabi lity (Wells Score). D-dimer results complet 013 below ed 11:45 the clinica l cutoff (0.5 mg/L) have excelle nt negativ e predict complet 013 elvia ed 11:45 value in excludi ng the diagnos is of acute PE or DVT. However , a complet 013 thrombo ed 11:45 embolic event cannot be exclude d solely on the basis of the D-Dimer complet 013 level ed 11:45 being within referen ce range. D-Dimer complet 013 s may ed 11:45 also be elevate d for a variety of disorde rs includi n old complet 013 age, ed 11:45 pregnan cy, coronar y disease , cancer, liver disease , infecti on, inflama complet 013 tion, ed 11:45 hematom a, DIC, trauma, post-hensley rgery, diabete s, thrombo lytic therapy complet 013 , ed 11:45 stress, and hospita lizatio n. D-Dimer levels may be decreas ed in patient complet 013 s on ed 11:45 anti-co agulant therapy . Patient complet 013 s with ed 11:45 a high clinica l probabi lity should not be exclude d without confirm complet 013 atory ed 11:45 radiolo gical or vascula r procedu res. ======= complet 013 ======= ed 11:45 ======= =FOLLOW ING RESULTS REPORTE D IN ERROR== ======= ======= ======= [id number] (03-20-2013 06:30) *GFR complet 013 only ed 06:30 applies to adults over the age 18. If complet 013 patient ed 06:30 is [place] n, multipl y GFR by 1.120. Normal complet 013 Range: ed 06:30 60 Ml/min/ 1.73 sq meters LOMERUL complet 013 AR ed 06:30 FILTRAT ION RATE INTERPR ETATION OSMOLAL 280 272 - complet ITY 013 295 ed 06:30 BUN/CRE 16 6 - 25 complet RATIO 013 ratio ed 06:30 CALCIUM 9.0 8.50 - complet 013 mg/dl 10.10 ed 06:30 GFR 60 complet 013 ml/min ed 06:30 AGE 06 47 yrs complet 013 ed 06:30 CREATIN 1.0 0.60 - complet INE 013 mg/dl 1.30 ed 06:30 BUN 16 7 - 18 complet 013 mg/dl ed 06:30 GLUCOSE 123 70 - Above complet 013 mg/dl 120 high ed 06:30 normal ANION 15 5 - 15 complet GAP 013 mmol/L ed 06:30 TOTAL 26 21 - 32 complet CO2 013 mmol/L ed 06:30 CHLORID 102 98 - complet E 013 mmol/L 107 ed 06:30 POTASSI 3.5 3.50 - complet UM 013 mmol/L 5.10 ed 06:30 SODIUM 139 136 - complet 013 mmol/L 145 ed 06:30 [id number] (03-20-2013 06:30) NE% 57.6 % 37.0 - complet 013 80.0 ed 06:30 MO% 7.0 % 0.0 - complet 013 12.0 ed 06:30 LY% 30.5 % 10.0 - complet 013 50.0 ed 06:30 PLT 518 142 - Above complet 013 K/uL 424 high ed 06:30 normal RDW 14.7 % 11.60 - complet 013 14.80 ed 06:30 MCHC 32.3 31.80 - complet 013 g/dL 35.40 ed 06:30 MCH 03-20-2 27.0 pg 27.0 - complet 013 31.20 ed 06:30 MCV 03-20-2 83.4 fL 80.0 - complet 013 97.0 ed 06:30 HCT 39 % 37.70 - complet 013 53.70 ed 06:30 HGB 12.7 12.20 - complet 013 g/dL 18.10 ed 06:30 RBC 06-07-2 4.71 4.04 - complet 013 M/uL 6.13 ed 06:30 Manual 2 NOT complet Diff 013 INDICAT ed 06:30 ED BA# 06-07-2 0.06 0.00 - complet 013 K/uL 0.20 ed 06:30 EO# 06-07-2 0.43 0.00 - complet 013 K/uL 0.70 ed 06:30 NE# 06-07-2 5.73 2.00 - complet 013 K/uL 6.90 ed 06:30 MO# 06-07-2 0.70 0.00 - complet 013 K/uL 0.90 ed 06:30 LY# 06-07-2 3.04 0.60 - complet 013 K/uL 3.40 ed 06:30 BA% -07-2 0.60 % 0.00 - complet 013 2.50 ed 06:30 EO% -07-2 4.30 % 0.00 - complet 013 7.00 ed 06:30 WBC -07-2 10.0 4.60 - complet 013 K/uL 10.20 ed 06:30 [id number] (03-20-2013 06:25) HCG complet 013 serum ed 06:25 test. advisab complet 013 le, the ed 06:25 test result should be confirm ed using a quantit ative and complet 013 tested ed 06:25 after 48 hours. If waiting 48 hours is not medical ly diagnos complet 013 is of ed 06:25 pregnan cy. A second specime n may need to be obtaine d NOTE: A complet 013 urine ed 06:25 HCG reporte d as Positiv e, <25 mIU/ml is not a definit elvia BETA NEGATIV NL: complet HCG (U) 013 E NEGATIV ed 06:25 E PTT (07-09-2012 19:40) COMMENT C.ROSEB complet 012 ERRY ed 19:40 200907/09/12 . APTT 62.1 26.90 - Above complet 012 secs 29.96 upper ed 19:40 panic limits PTT (07-09-2012 12:30) RD BCK L complet VRFY: 012 [place] ed 12:30 [id number] APTT 52.3 26.90 - Above complet 012 secs 29.96 high ed 12:30 normal GLUCOSE (07-09-2012 12:06) GLUCOSE 431 70 - Above complet 012 mg/dl 120 upper ed 12:[address] BCK L. complet VRFY: 012 [place] ed 12:06 1220 [id number] GLUCOSE (07-09-2012 05:50) RD BCK C complet VRFY: 012 [facility] ed 05:50 RY [id number] GLUCOSE 513 70 - Above complet 012 mg/dl 120 upper ed 05:50 panic limits CBC W DIFF AUTOMATED (07-09-2012 01:09) Manual NOT complet Diff 012 INDICAT ed 01:09 ED BA# 07-09-2 0.01 0.00 - complet 012 K/uL 0.20 ed 01: EO# 2 0.00 0.00 - complet 012 K/uL 0.70 ed 01:09 NE# 07-09-2 12.42 2.00 - Above complet 012 K/uL 6.90 high ed 01:09 normal MO# 07-09-2 0.62 0.00 - complet 012 K/uL 0.90 ed 01:09 LY# 07-09-2 1.41 0.60 - complet 012 K/uL 3.40 ed 01:09 BA% 07-09-2 0.10 % 0.00 - complet 012 2.50 ed 01:09 EO% 07-09-2 0.00 % 0.00 - complet 012 7.00 ed 01:09 NE% 2 85.8 % 37.0 - Above complet 012 80.0 high ed 01:09 normal MO% 07-09-2 4.3 % 0.0 - complet 012 12.0 ed 01:09 LY% 2 9.8 % 10.0 - Below complet 012 50.0 low ed 01:09 normal PLT 369 142 - complet 012 K/uL 424 ed 01:09 RDW 15.5 % 11.60 - Above complet 012 14.80 high ed 01:09 normal MCHC 31.7 31.80 - Below complet 012 g/dL 35.40 low ed 01:09 normal MCH 26.5 pg 27.0 - Below complet 012 31.20 low ed 01:09 normal MCV 83.8 fL 80.0 - complet 012 97.0 ed 01:09 HCT 34 % 37.70 - Below complet 012 53.70 low ed 01:09 normal HGB 10.8 12.20 - Below complet 012 g/dL 18.10 low ed 01:09 normal RBC 4.07 4.04 - complet 012 M/uL 6.13 ed 01:09 WBC 14.5 4.60 - Above complet 012 K/uL 10.20 high ed 01:09 normal PTT (07-09-2012 01:09) APTT 62.5 26.90 - Above complet 012 secs 29.96 upper ed 01:09 panic limits COMMENT C.ROSEB complet 012 ERRY ed 01:09 0124 07/09/12 . GLUCOSE (07-08-2012 22:03) RD BCK C.ROSEB complet VRFY: 012 ERRY ed 22:03 2225 07/08/12 . GLUCOSE 467 70 - Above complet 012 mg/dl 120 upper ed 22:03 panic limits PTT (07-08-2012 18:01) COMMENT L.COOPE complet 012 R 1822 ed 18:01 07/08/12 . APTT 43.0 26.90 - Above complet 012 secs 29.96 high ed 18:01 normal GLUCOSE (07-08-2012 18:01) RD BCK L.COOPE complet VRFY: 012 R 1821 ed 18:01 07/08/12 . GLUCOSE 473 70 - Above complet 012 mg/dl 120 upper ed 18:01 panic limits COMPREHENSIVE METABOLIC PANEL CMP (07-08-2012 11:31) CHLORID 99 98 - complet E 012 mmol/L 107 ed 11:31 POTASSI 3.9 3.50 - complet UM 012 mmol/L 5.10 ed 11:31 SODIUM 07-08- 135 136 - Below complet 012 mmol/L 145 low ed 11:31 normal 25-2 *GFR complet 012 only ed 11:31 applies to adults over the age 18. 25-2 If complet 012 patient ed 11:31 is [place], multipl y GFR by 1.120. 25-2 Normal complet 012 Range: ed 11:31 >60 Ml/min/ 1.73 sq meters 2 \E\BLDo complet 012 \E\GLOM ed 11:31 ERULAR FILTRAT ION RATE INTERPR ETATION \E\BLDx \E\ A/G 0.8 1.0 - Below complet RATIO 012 ratio 3.90 low ed 11:31 normal GLOBULI 3.9 1.30 - Above complet N 012 g/dl 3.50 high ed 11:31 normal ALBUMIN 3.3 3.40 - Below complet 012 g/dl 5.0 low ed 11:31 normal TOTAL 7.2 6.40 - complet PROTEIN 012 g/dl 8.20 ed 11:31 ALK 2 92 IU/L 50 - complet PHOS 012 136 ed 11:31 ALT 69 IU/L 30 - 65 Above complet (SGPT) 012 high ed 11:31 normal AST 45 IU/L 15 - 37 Above complet (SGOT) 012 high ed 11:31 normal TOTAL 2 0.9 0.20 - complet GERTRUDE 012 mg/dl 1.0 ed 11:31 CALCIUM 2 8.9 8.50 - complet 012 mg/dl 10.10 ed 11:31 GFR 07-08-2 57 complet 012 ml/min ed 11:31 AGE [birth year]2 46 yrs complet 012 ed 11:31 CREATIN 07-08-2 1.1 0.60 - complet INE 012 mg/dl 1.30 ed 11:31 BUN 2 16 7 - 18 complet 012 mg/dl ed 11:31 RD BCK 2 L.COOPE complet VRFY: 012 R,1207, ed 11:31 09/25/1 2,EBARB OUR RD BCK 09-25-2 RESULTS complet VRFY: 012 ed 11:31 VERIFIE D GLUCOSE 418 70 - Above complet 012 mg/dl 120 upper ed 11:31 panic limits ANION 16 5 - 15 Above complet GAP 012 mmol/L high ed 11:31 normal TOTAL 24 21 - 32 complet CO2 012 mmol/L ed 11:31 PTT (07-08-2012 11:31) RD BCK [place], complet VRFY: 012 1146, ed 11:31 2, EBARBOU R APTT 32.3 26.90 - Above complet 012 secs 29.96 high ed 11:31 normal CBC W DIFF AUTOMATED (07-08-2012 04:20) RBC NORMAL complet Morph 012 ed 04:20 Platele ADEQUAT complet t Est 012 E ed 04:20 NRBC 0 % 0 - 0 complet 012 ed 04:20 MONOS 1 % 0 - 12 complet 012 ed 04:20 ATY 2 % 0 - 0 Above complet LYMPHS 012 high ed 04:20 normal LYMPHS 13 % 16 - 46 Below complet 012 low ed 04:20 normal BANDS 5 % 0 - 8 complet 012 ed 04:20 SEGS 79 % 40 - 75 Above complet 012 high ed 04:20 normal Manual SEE complet Diff 012 BELOW ed 04:20 BA# 0.02 0.00 - complet 012 K/uL 0.20 ed 04:20 EO# 2 0.01 0.00 - complet 012 K/uL 0.70 ed 04:20 NE# 2 5.79 2.00 - complet 012 K/uL 6.90 ed 04:20 MO# 2 0.18 0.00 - complet 012 K/uL 0.90 ed 04:20 LY# 1.33 0.60 - complet 012 K/uL 3.40 ed 04:20 BA% 2 0.30 % 0.00 - complet 012 2.50 ed 04:20 EO% 0.10 % 0.00 - complet 012 7.00 ed 04:20 NE% 79.0 % 37.0 - complet 012 80.0 ed 04:20 MO% 2.5 % 0.0 - complet 012 12.0 ed 04:20 LY% 18.1 % 10.0 - complet 012 50.0 ed 04:20 PLT 335 142 - complet 012 K/uL 424 ed 04:20 RDW 15.3 % 11.60 - Above complet 012 14.80 high ed 04:20 normal MCHC 31.7 31.80 - Below complet 012 g/dL 35.40 low ed 04:20 normal MCH 26.5 pg 27.0 - Below complet 012 31.20 low ed 04:20 normal MCV 83.5 fL 80.0 - complet 012 97.0 ed 04:20 HCT 35 % 37.70 - Below complet 012 53.70 low ed 04:20 normal HGB 11.2 12.20 - Below complet 012 g/dL 18.10 low ed 04:20 normal RBC 4.23 4.04 - complet 012 M/uL 6.13 ed 04:20 WBC 7.3 4.60 - complet 012 K/uL 10.20 ed 04:20 PTT (07-08-2012 04:20) APTT 30.8 26.90 - Above complet 012 secs 29.96 high ed 04:20 normal URINALYSIS COMPLETE AUTOMATED (07-07-2012 21:25) CULTURE C\T\S Abnorma complet SETUP 012 ORDER l ed 21:25 METH OF C CATCH complet MARI 012 ed 21:25 Crystal NEGATIV NL: active s 012 E ATIVE NEGATIV 21:25 E Casts NEGATIV NL: active 012 E ATIVE NEGATIV 21:25 E Yeast NEGATIV NL: active 012 E ATIVE NEGATIV 21:25 E Mucous NEGATIV NL: active 012 E ATIVE NEGATIV 21:25 E Bacteri 4+ NL: Abnorma complet a 012 ATIVE NEGATIV l ed 21:25 E Epi 3 - 5 NL: Abnorma complet Cells 012 ATIVE NEGATIV l ed 21:25 E Rbc NEGATIV NL: active 012 E ATIVE NEGATIV 21:25 E Wbc 07-07- 5 - 10 NL: Abnorma complet 012 ATIVE NEGATIV l ed 21:25 E MICROSC See active OPIC 012 Below_ 21:25 Leukocy 1+ NL: Abnorma complet arielle 012 ative Negativ l ed 21:25 e Nitrite NEG NL: complet 012 ative Negativ ed 21:25 e Urobili 0.2 - NL: 0.2 complet nogen 012 1.0 - 1.0 ed 21:25 Protein NEG NL: complet 012 ative Negativ ed 21:25 e pH 6.5 NL: NL: complet 012 ed 21:25 Blood NEG NL: complet 012 ative Negativ ed 21:25 e Specifi 1.010 NL: complet c Gr 012 1.030 1.00 >= ed 21:25 1.030 Ketones NEG NL: complet 012 ative Negativ ed 21:25 e Bilirub NEG NL: complet in 012 ative Negativ ed 21:25 e Glucose NEG NL: complet 012 ative Negativ ed 21:25 e Clarity CLEAR NL: complet 012 ative Negativ ed 21:25 e Color LtYello NL: complet 012 w ative Negativ ed 21:25 e CULTURE URINE (07-07-2012 21:25) SEND YES complet PHARM/I 012 ed C 21:25 RESULT: INDICAT complet 012 ED ed 21:25 RESULT: PLEASE complet 012 RESUBMI ed 21:25 T IF CLINICA LLY RESULT: 3 OR complet 012 MORE ed 21:25 ISOLATE S PRESENT STATUS FINAL complet 012 ed 21:25 RESULT: NO complet 012 GROWTH ed 21:25 1ST DAY STATUS PRELIMI complet 012 NARY ed 21:25 COLLECT CLEAN complet ION: 012 CATCH ed 21:25 _CULTUR complet 012 E ed 21:25 URINE_ CULTURE BLOOD (07-07-2012 19:07) RESULT complet 012 ed 19:07 STATUS complet 012 ed 19:07 ======= complet 012 ======= ed 19:07 ======= =FOLLOW ING RESULTS REPORTE D IN ERROR== ======= ======= ======= SEND NO complet PHARM/I 012 ed C 19:07 RESULT NO complet 012 GROWTH ed 19:07 @5 D STATUS FINAL complet 012 ed 19:07 _CULTUR complet 012 E,BLOOD ed 19:07 _ complet 012 ed 19:07 COR RECTED REPORT* D DIMER QT (07-07-2012 19:06) confirm complet 012 atory ed 19:06 radiolo gical or vascula r procedu res. Patient complet 012 s with ed 19:06 a high clinica l probabi lity should not be exclude d without patient complet 012 s on ed 19:06 anti-co agulant therapy . therapy complet 012 , ed 19:06 stress, and hospita lizatio n. D-Dimer levels may be decreas ed in inflama complet 012 tion, ed 19:06 hematom a, DIC, trauma, post-hensley rgery, diabete s, thrombo lytic old complet 012 age, ed 19:06 pregnan cy, coronar y disease , cancer, liver disease , infecti on, D-Dimer complet 012 s may ed 19:06 also be elevate d for a variety of disorde rs includi n-24- D-Dimer complet 012 level ed 19:06 being within referen ce range. 07-07-2 a complet 012 thrombo ed 19:06 embolic event cannot be exclude d solely on the basis of the predict complet 012 elvia ed 19:06 value in excludi ng the diagnos is of acute PE or DVT. However , 07-07- results complet 012 below ed 19:06 the clinica l cutoff (<0.5 mg/L) have excelle nt negativ e When complet 012 combine ed 19:06 d with a low clinica l probabi lity (Wells Score). D-dimer [CLINIC complet 012 AL ed 19:06 CUTOFF = <0.5 mg/L] QUANTIT complet 012 ATIVE ed 19:06 D-DIMER INTERPR ETATION D-DIMER 1.77 0.19 - Above complet , QT 012 mg/L 0.59 high ed 19:06 normal PT PTT (07-07-2012 19:06) PT 07-07-2 11.0 9.70 - Above complet 012 secs 10.60 high ed 19:06 normal valves complet 012 2.5 - ed 19:06 3.5 24-2 embolis complet 012 m and ed 19:06 patient s with mechani shanna heart * Oral complet 012 anticoa ed 19:06 gulant therapy for recurre nt 2 * complet 012 Routine ed 19:06 or anticoa gulant therapy 2.0 - 3.0 07-07-2 INR complet 012 SUGGEST ed 19:06 ED GUIDELI CHENCHO APTT 07-07- 22.8 26.90 - Below complet 012 secs 29.96 low ed 19:06 normal INR 07-07-2 1.1 0.90 - complet 012 1.10 1.10 ed 19:06 CBC W DIFF AUTOMATED (07-07-2012 19:06) Manual NOT complet Diff 012 INDICAT ed 19:06 ED BA# 09-24-2 0.12 0.00 - complet 012 K/uL 0.20 ed 19:06 EO# 24-2 0.17 0.00 - complet 012 K/uL 0.70 ed 19:06 NE# 24-2 4.93 2.00 - complet 012 K/uL 6.90 ed 19:06 MO# 24-2 0.87 0.00 - complet 012 K/uL 0.90 ed 19:06 LY# 24-2 2.94 0.60 - complet 012 K/uL 3.40 ed 19:06 BA% 07-07-2 1.30 % 0.00 - complet 012 2.50 ed 19:06 EO% 07-07-2 1.90 % 0.00 - complet 012 7.00 ed 19:06 NE% 07-07-2 54.6 % 37.0 - complet 012 80.0 ed 19:06 MO% 07-07-2 9.6 % 0.0 - complet 012 12.0 ed 19:06 LY% 07-07-2 32.6 % 10.0 - complet 012 50.0 ed 19:06 PLT 396 142 - complet 012 K/uL 424 ed 19:06 RDW 15.5 % 11.60 - Above complet 012 14.80 high ed 19:06 normal MCHC 32.1 31.80 - complet 012 g/dL 35.40 ed 19:06 MCH 26.4 pg 27.0 - Below complet 012 31.20 low ed 19:06 normal MCV 82.2 fL 80.0 - complet 012 97.0 ed 19:06 HCT 39 % 37.70 - complet 012 53.70 ed 19:06 HGB 12.5 12.20 - complet 012 g/dL 18.10 ed 19:06 RBC 4.73 4.04 - complet 012 M/uL 6.13 ed 19:06 WBC 9.0 4.60 - complet 012 K/uL 10.20 ed 19:06 COMPREHENSIVE METABOLIC PANEL CMP (07-07-2012 19:06) *GFR complet 012 only ed 19:06 applies to adults over the age 18. 09-24-2 If complet 012 patient ed 19:06 is [place] n, multipl y GFR by 1.120. 24-2 Normal complet 012 Range: ed 19:06 60 Ml/min/ 1.73 sq meters 2 \E\BLDo complet 012 \E\GLOM ed 19:06 ERULAR FILTRAT ION RATE INTERPR ETATION \E\BLDx \E\ A/G 2 0.9 1.0 - Below complet RATIO 012 ratio 3.90 low ed 19:06 normal GLOBULI 2 4.1 1.30 - Above complet N 012 g/dl 3.50 high ed 19:06 normal ALBUMIN 2 3.8 3.40 - complet 012 g/dl 5.0 ed 19:06 TOTAL 2 7.9 6.40 - complet PROTEIN 012 g/dl 8.20 ed 19:06 ALK 07-07- 96 IU/L 50 - complet PHOS 012 136 ed 19:06 ALT 79 IU/L 30 - 65 Above complet (SGPT) 012 high ed 19:06 normal AST 58 IU/L 15 - 37 Above complet (SGOT) 012 high ed 19:06 normal TOTAL 2 1.0 0.20 - complet GERTRUDE 012 mg/dl 1.0 ed 19:06 CALCIUM 07-07-2 9.4 8.50 - complet 012 mg/dl 10.10 ed 19:06 GFR 2 60 complet 012 ml/min ed 19:06 AGE 09-[birth year]2 46 yrs complet 012 ed 19:06 CREATIN 2 0.9 0.60 - complet INE 012 mg/dl 1.30 ed 19:06 BUN 2 10 7 - 18 complet 012 mg/dl ed 19:06 GLUCOSE 242 181 70 - Above complet 012 mg/dl 120 high ed 19:06 normal ANION 24-2 11 5 - 15 complet GAP 012 mmol/L ed 19:06 TOTAL 2 31 21 - 32 complet CO2 012 mmol/L ed 19:06 CHLORID 07-07-2 100 98 - complet E 012 mmol/L 107 ed 19:06 POTASSI 2 3.0 3.50 - Below complet UM 012 mmol/L 5.10 low ed 19:06 normal SODIUM 139 136 - complet 012 mmol/L 145 ed 19:06 DIGOXIN (07-07-2012 19:06) LAST complet 012 DOSE ed 19:06 DATE/TI ME ____ DIGOXIN 0.6 0.90 - Below complet 012 ng/ml 2.0 low ed 19:06 normal TSH (07-07-2012 19:06) TSH 2.95 0.36 - complet 012 uIU/mL 3.74 ed 19:06 CULTURE BLOOD (07-07-2012 18:30) RESULT complet 012 ed 18:30 STATUS complet 012 ed 18:30 ======= complet 012 ======= ed 18:30 ======= =FOLLOW ING RESULTS REPORTE D IN ERROR== ======= ======= ======= SEND NO complet PHARM/I 012 ed C 18:30 RESULT NO complet 012 GROWTH ed 18:30 @5 D STATUS FINAL complet 012 ed 18:30 _CULTUR complet 012 E,BLOOD ed 18:30 _ complet 012 ed 18:30 COR RECTED REPORT*
--- OUTSIDE RECORDS SUMMARY | 2017-08-17 15:22 | External Medical Summary Rpt | CCD ---
Author Author , RIGOBERTO Organization RIGOBERTO Address Unknown Phone [email or web address] Purpose Continuity of Care Document - 07-07-2012 [...] rrin 017 mg/dL ed SerPl-m 11:28 Cnc 52473-4 (07-22-2013 07:40) ALT 29 IU/L 12 - [...] applies to adults over the age 18. 77715-2 (07-20-2013 22:15) Color LT. NL: complet 013 [...] NOT complet SETUP 013 INDIC ed 22:15 95564-0 (07-20-2013 15:55) NE% 55.6 % 37.0 - [...] 013 BETIC: ed 15:55 <6.0% TOTAL HGB 83492-8 (07-20-2013 15:55) CHOLEST 174 0 - 200 [...] ERIDES 013 mg/dL high ed 15:55 normal 83404-4 (07-16-2013 04:25) SODIUM 139 136 - complet [...] applies to adults over the age 18. 89914-6 (07-16-2013 04:25) WBC -03-2 7.4 4.60 - [...] complet Diff 013 INDICAT ed 04:25 [place] 60586-5 (07-15-2013 07:34) EO% 10-02-2 2.00 % 0.00 [...] 37.0 - complet 013 80.0 ed 07:34 51915-0 (07-15-2013 07:34) ALT 31 IU/L 12 - [...] 73 - complet 013 393 ed 08:10 20892-0 (07-13-2013 18:50) MO# 07-13- 0.95 0.00 - [...] 10.0 - complet 013 50.0 ed 18:50 28624-1 (07-13-2013 18:50) ALT 07-13-2 35 IU/L 12 [...] 18:50 TOTAL 1.2 0.20 - Above complet GERTURDE 013 mg/dl 1.0 high ed 18:50 normal [...] 013 RESULT ed 10:07 FLAG RANGE UNITS TX ------- complet 013 ------- ed 10:07 ------- ------- ------- ------- ------- ------- ------- ------- ------- --- _VIT complet 013 B12\T\ ed 10:07 FOLATE_ Vitamin complet 013 B12 ed 10:07 and Folate CB complet 013 refers ed 10:07 to: [facility] [place] A serum complet 013 folate ed 10:07 [...] Road [place], complet 013 [place] ed 10:07 21742-7 296 614 complet 013 889-106 ed 10:07 1 74604-2 (07-12-2013 10:07) RETIC 09-29-2 1.1 % 0.20 [...] 57 complet SATURAT 013 ed ION 10:07 62519-6 (07-12-2013 10:07) BA# 0.04 0.00 - complet [...] - complet 013 K/uL 0.70 ed 10:07 57132-6 (07-11-2013 08:00) TROPONI 07-11-2 0.00 0.00 - [...] LE ON PATIENT S W/HARVEY L CKMB 40674-4 (07-11-2013 04:15) MCV 81.9 fL 80.0 - [...] complet 013 2.5 - ed 04:15 3.5 13710-6 (07-11-2013 01:30) TROPONI 0.00 0.00 - complet [...] LE ON PATIENT S W/HARVEY L CKMB 93514-2 (07-11-2013 00:50) APTT 09-28-2 76.5 26.90 - Above complet 013 secs 29.96 upper ed 00:[address] [facility] O.Trues complet VRFY: 013 dell/ ed 00:50 2813/01 33/king 24060-8 (07-10-2013 20:25) TROPONI 0.00 0.00 - complet N-I 013 ng/ml 0.06 ed 20:25 INITIAL complet 013 ed 20:25 TROPONI N? __NO_ 3.1. VWC. . .M [facility] O.Trues complet VRFY: 013 dell/ ed [...] LE ON PATIENT S W/HARVEY L CKMB 53068-7 (07-10-2013 17:30) CULTURE C\T\S Abnorma complet SETUP [...] NL: complet 013 Negativ ed 17:30 e 13017-6 (07-10-2013 12:30) therapy complet 013 , ed [...] ed 12:30 gulant therapy for recurre nt 68118-3 (07-10-2013 12:30) WBC 07-10- 10.6 4.60 - [...] complet Diff 013 INDICAT ed 12:30 ED 18748-0 (07-10-2013 12:30) TSH 0.51 0.36 - complet 013 uIU/mL 3.74 ed 12:30 09952-2 (07-10-2013 12:30) TROPONI 0.00 0.00 - complet N-I 013 ng/ml 0.06 ed 12:30 INITIAL complet 013 ed 12:30 TROPONI N? _YES_ 3.1414. CW . . .M 0 - complet 013 0.06 ed 12:30 ng/ml (NEGATI VE) > 0.06 complet 013 ng/ml ed 12:30 (POSITI VE) 2639-3 (07-10-2013 12:30) MYOGLOB 35 10 - 92 complet IN 013 ng/ml ed 12:30 27627-5 (07-10-2013 12:30) ALT 28 IU/L 12 - [...] - complet 013 ng/ml 3.60 ed 12:30 72660-1 (07-10-2013 12:30) TRIGLYC 171 1 - 150 [...] ratio 4.44 high ed RATIO 12:30 normal 46882-6 (06-15-2013 04:50) causes complet 013 of ed 04:50 increas ed NT-proB CLIP RIVETER not related to congest elvia heart failure complet 013 also. ed 04:50 For use as a screeni ng test, values less than 131pg/m l are complet 013 recomme ed 04:50 nded below the age of 75. For patient s 75 years and older, complet 013 a ed 04:50 cutoff of 450pg/n l is recomme nded. * NT-proB 296 0 - 131 Above complet CLIP RIVETER 013 pg/ml high ed 04:50 normal NOTIFY YES complet QA 013 ed 04:50 This complet 013 ed 04:50 analyte has conside rable variabi lity in patient s without known heart complet 013 disease ed 04:50 and for this reason it is difficu lt to assign strict referen complet 013 ce ed 04:50 ranges that would account for all circums tances. NT-proB complet 013 CLIP RIVETER can ed 04:50 show substan tial increas es in patient s without heart failure complet 013 with ed 04:50 increas ing age and advanci ng renal insuffi ciency; males in complet 013 general ed 04:50 have somewha t higher values than females . There are other 19727-2 (06-14-2013 04:30) WBC 7.8 4.60 - complet [...] complet Diff 013 INDICAT ed 04:30 ED 02278-6 (06-14-2013 04:30) SODIUM 140 136 - complet [...] applies to adults over the age 18. 85078-2 (06-13-2013 06:48) RBC 3.91 4.04 - Below [...] SLIDE complet Diff 013 SCAN-OK ed 06:48 92841-2 (06-12-2013 11:45) NE# 08-30-2 6.06 2.00 - [...] ne (T3) 127 71-180 ng/dL CB 3.0815. [facility] P[facility].L CTR CB complet refers ed 11:45 to: [facility] [place] 6370 complet 013 Espino ed 11:45 [address] [place], complet 013 [place] ed 11:45 10569-6 296 614 complet 013 889-106 ed 11:45 [...] REPORTE D IN ERROR== ======= ======= ======= 45943-8 (03-20-2013 06:30) *GFR complet 013 only ed [...] - complet 013 mmol/L 145 ed 06:30 91921-5 (03-20-2013 06:30) NE% 57.6 % 37.0 - [...] 12:30) RD BCK L complet VRFY: 012 [place]ONNER ed 12:30 [id number] 8606 APTT 52.3 26.90 - Above complet 012 secs 29.96 high ed 12:30 normal GLUCOSE (07-09-2012 12:06) GLUCOSE 431 70 - Above complet 012 mg/dl 120 upper ed 12:[address] BCK L. complet VRFY: 012 BONNER ed 12:06 1220 780874 GLUCOSE (07-09-2012 05:50) RD BCK C complet VRFY: 012 [facility] ed 05:50 RY [id number] 2430 GLUCOSE 513 70 - Above complet 012 [...]
--- OUTSIDE RECORDS SUMMARY | 2017-08-17 15:24 | External Medical Summary Rpt | CCD ---
Demographics Preferred Language Danish Marital Status Unknown Worship Affiliation Unknown Race Unknown Ethnic Group Unknown Author Author , RIGOBRETO FRANKLIN Address Unknown Phone Immunization Unable to retrieve immunization data due to connection failure with Immunization Registry. Please try again later.
--- OUTSIDE RECORDS SUMMARY | 2017-08-17 15:24 | External Medical Summary Rpt | CCD ---
Author Author Conduent Organization Conduent Address Unknown Phone Unavailable Purpose Continuity of Care Document - through 2016
--- OUTSIDE RECORDS SUMMARY | 2017-08-17 15:24 | External Medical Summary Rpt | CCD ---
Demographics Preferred Language Sami Marital Status Unknown Confucianist Affiliation Unknown Race Unknown Ethnic Group Unknown Author Author , RIGOBERTO FRANKLIN Address Unknown Phone Immunization Unable to retrieve immunization data due to connection failure with Immunization Registry. Please try again later.
--- NOTE | 2017-08-17 15:34 | Urgent Treatment Center Report ---
History of Present Issue Date/Time Seen by Provider 08/17/17 1524 Visit Reason Pt arrived:Walked Presenting Problem:PT C/O OF COUGH, HEAD AND CHEST CONGESTION, WHEEZING, SORE THROAT, AND RT EAR PAIN Location if Accident: Onset of symptoms date/time:/ or onset unknown for:MEDICAL HX UNKNOWN Have you (or family members/close friends) recently traveled outside the [place]? N If Yes, where/when: Have you had exposure to infectious disease within the past month? TB? Other? Specify: Patient states that she has been having cough, stuffy nose and congestion along with sorethroat and pain in her right ear. State that she has been having body aches and flu like symptoms for several days that has continued to get worse. State that she has taken several over the counter medication but it has not helped ALLERGIES Coded Allergies: lisinopril (08/17/17) History Medical History General CAD? No Angina: No MS: No Hypertension? No Hyperlipidemia? No CHF? No DVT? No PE? No COPD? Yes Asthma? Yes Anemia? No Thyroid Problems? Yes Hypothyroidism? Yes CVA? No Seizures? No Renal Insuffiency? No UTI? Yes Stones? No BPH? No GB Disease: Yes Nephritic Syndrome? No Asplenia? No Hepatitis? No Sickle Cell Disease? No Arthritis? No Migraines? No Cataracts? No Glaucoma? No MRSA? No HIV? No TB? No Anxiety? Yes Depression? Yes Cancer? No More? No Immunization HX DT/Tetanus 5-10 Years Ago Surgical Hx Previous Surgery?Y Gallbladder (Other) Social History Smoking Hx Smoker: Never Smoker Tobacco: No Alcohol Alcohol: No Review of Systems All Other Systems Reviewed and Negative Constitutional chills, fever ENT ear pain, nose discharge, nose congestion, throat pain. Respiratory cough, denies shortness of breath, denies stridor, wheezing Physical Exam Vital Signs Vital Signs Date Time Temp Pulse Resp B/P Pulse O2 O2 Flow FiO2 Ox Delivery Rate 08/17 1515 98.4 87 18 149/79 97 General Appearance normal appearance, WD/WN, no apparent distress Ear, Nose, Throat sinus pain/drainage, nasal congestion, pharyngeal erythema, tonsillar swelling, drainage noted, right ear red, TM buldging Respiratory Status Yes: trachea midline, chest symmetrical, non tender chest. No: respiratory distress. Lung Sounds bilateral: normal breath sounds, lungs clear. Cardiovascular normal exam, regular rate/rhythm, no peripheral edema Neurologic alert, normal exam, oriented x 3 Medical Decision Making LABS/Meds/Orders Pt receiving controlled substance in ED? No Results/Orders Laboratory Tests 08/17/17 1521: Influenza Type A Ag NOT DETECTED, Influenza Type B Ag NOT DETECTED, Group A Strep Screen NOT DETECTED Orders Procedure Date/time Status UTC STREP SCREEN 08/17 1521 Complete UTC FLU A,B 08/17 1521 Complete Departure Departure Time of Disposition 1539 Disposition DC Home or Self Care(routine) Clinical Impression Primary Impression: Otitis media Qualifiers: Otitis media type: unspecified Laterality: right Qualified Code: H66.91 - Otitis media, unspecified, right ear Secondary Impressions: Upper respiratory infection Qualifiers: URI type: unspecified URI Qualified Code: J06.9 - Acute upper respiratory infection, unspecified Condition STABLE Referrals TERRI GONZALEZ (Family): 3 Days-Call Office Patient Instructions DI for Otitis Media (Middle Ear Infection)-Child, Sore Throat Additional Instructions * Monitor Temp. Tylenol and/or Ibuprofen as needed. ER if fever is no less than 101 despite alternating Tylenol and Ibuprofen * Encourage fluids, water, Gatorade, powerade, pedialyte if infant/toddler/or child * Warm salt water gargles for throat irritation *Warm fluids *Sore throat lozenges *Sleep elevated *humidifier or vaporizer Lots of rest Increase fluids, water, Gatorade, powerade *Flonase 2 sprays each nostril daily but may take 2-3 days to notice improvement with it *Your throat swab was sent to lab for culture. Those results area typically sent to your primary care physician. Be sure to follow up in 2-3 days if no improvement so they can review those results and treat if necessary If you dont have primary care I recommend you get one, but in the mean time you will have to return to a walk in clinic Follow up IMMEDIATELY for new or worsening of symptoms OR no noticeable improvement over the next 48-72 hours. 911 immediately for any life threatening symptoms such as chest pain or difficulty breathing Discharge Counseling Counseled pt/family regarding diagnosis, test results, medications/RX, home care, follow up needs Prescriptions Current Visit Scripts Amoxicillin Trihydrate (Amoxicillin 500MG) 500 MG PO TID #30 CAP Benzonatate (Tessalon Perle) 100 MG PO TID #15 SGL at 8478
[2017-08-17 15:37] LABS: UTC STREP SCREEN NOT DETECTED (NOTDETECTED)
[2017-08-17] MEDS ORDERED: TESSALON PERLE100 M1 PO (15:40)
[2017-08-17] MEDS ORDERED: AMOXICILLIN 50500 MG PO (15:40)
[2017-08-17] MEDS ORDERED: MEDROL 4MG. DOSE4 MG PO (15:40)
[2017-08-17 15:42] VITALS: BP 149/79
== END 2017-08-17 15:42 | disposition home or self-care (01) ==
LOC: UTC 15:04
PROVIDERS: Nurse Practitioner
DX: H66.91 Otitis media, unspecified, right ear (principal); J06.9 Acute upper respiratory infection, unspecified